=== PATIENT | male | born 1960 | race Caucasian/White ===

== ENCOUNTER 2017-02-24 13:58 | Emergency (ER) | payer OTHER ==
[2017-02-24 14:08] VITALS: BP 145/92; PULSE 86; TEMP 98; BMI 29.7
[2017-02-24] MEDS ORDERED: KETOROLAC TROMETHAMINE 30 MG/1 ML VIAL IM ONE (14:34)
[2017-02-24] MEDS ORDERED: CYCLOBENZAPRINE HCL 10 MG TABLET (FP) PO ONE (14:34)
[2017-02-24] MEDS ORDERED: CYCLOBENZAPRINE HCL 10 MG TABLET (FP) ONE (14:39)
[2017-02-24] MEDS ORDERED: KETOROLAC TROMETHAMINE 30 MG/1 ML VIAL ONE (14:39)
--- NOTE | 2017-02-24 14:45 | PDOC ---
History of Present Illness - General Chief Complaint: Back Pain Stated Complaint: BACK PAIN Time Seen by Provider: 02/24/17 14:18 History Source: Patient Exam Limitations: No Limitations - History of Present Illness Initial Comments: 02/24/17 14:34 56 year old male with non radiating, constant pain to left lower back x 2 days . States pain is worse with movement. Denies fever, chills, or urinary symptoms. States took no medication so far 02/24/17 14:47 Occurred: reports: yesterday Severity: reports: mild Pain Location: reports: back Method of Injury: Yes: unknown Modifying Factors: improves with: immobilization Loss of Consciousness: no loss of consciousness Associated Symptoms (Fall): denies symptoms Past History - Past Medical History Allergies/Adverse Reactions: Allergies Allergy/AdvReac Type Severity Reaction Status Date / Time No Known Allergies Allergy Verified 02/24/17 14:00 Home Medications: Ambulatory Orders Cyclobenzaprine HCl [Flexeril -] 10 mg PO HS #30 tablet 02/24/17 Naproxen [Naprosyn -] 500 mg PO ONCE #20 tablet 02/24/17 COPD: No Thyroid Disease: No - Suicide/Smoking/Psychosocial Hx Smoking History: Never smoked Have you smoked in the past 12 months: No Information on smoking cessation initiated: No Hx Alcohol Use: No Drug/Substance Use Hx: No Substance Use Type: None Trauma Specific PMHX - Complaint Specific PMHX Arthritis: No Back Injury: No Neck Injury: No Hx Sacro Iliac Joint Dysfunction: No Review of Systems - Review of Systems Able to Perform ROS?: Yes Is the patient limited [place] proficient: No Constitutional: No: Chills, Fever, Malaise, Night Sweats, Weakness, Weight Stable, Other HEENTM: No: See HPI, Double Vision, Ear Discharge, Nose Congestion, Tinnitus, Throat Pain, Throat Swelling, Mouth Swelling Respiratory: No: Orthopnea, Shortness of Breath, SOB at Rest, Wheezing, Productive cough Cardiac (ROS): No: Chest Pain, Lightheadedness ABD/GI: No: Nausea, Poor Appetite, Indigestion, Abdominal cramping : No: Burning, Discharge, Hematuria, Incontinence, Urgency, Testicular Pain Musculoskeletal: Yes: Back Pain, Muscle Pain Integumentary: No: Bruising, Change in Hair/Nails, Erythema Neurological: No: Numbness, Unsteady Gait *Physical Exam - Vital Signs Last Vital Signs Temp Pulse Resp BP Pulse Ox 98.0 F 86 18 145/92 100 02/24/17 14:01 02/24/17 14:01 02/24/17 14:01 02/24/17 14:01 02/24/17 14:01 - Physical Exam General Appearance: Yes: Nourished, Appropriately Dressed. No: Apparent Distress HEENT: positive: EOMI, BIJAN, Pharynx Normal Neck: positive: Supple. negative: Lymphadenopathy (R), Lymphadenopathy (L), Tender midline Respiratory/Chest: positive: Lungs Clear, Normal Breath Sounds. negative: Respiratory Distress, Accessory Muscle Use Cardiovascular: positive: Regular Rhythm, Regular Rate, S1, S2 Musculoskeletal: positive: Other (no mid spinal tenderness, non tender with palpation over left flank, + pain with straight leg raise). negative: CVA Tenderness (R), CVA Tenderness (L), Decreased Range of Motion Extremity: positive: Normal Capillary Refill Neurologic: positive: regulatory affairs consultant II-XII NML intact, Fully Oriented, Alert Medical Decision Making - Medical Decision Making 02/24/17 14:51 56 year old with no medical or surgical history with lower left back pain worse with movement urinalysis analgesia ordered 02/24/17 15:44 urinalysis: negative pain better after medication rx: flexeril x3 days and analgesia *DC/Admit/Observation/Transfer Diagnosis at time of Disposition: Back pain Qualifiers: Back pain location: low back pain Chronicity: acute Back pain laterality: left Sciatica presence: without sciatica Qualified Code(s): M54.5 - Low back pain - Discharge Dispostion Disposition: HOME Condition at time of disposition: Good Admit: No - Prescriptions Prescriptions: Cyclobenzaprine HCl [Flexeril -] 10 mg PO HS #30 tablet Naproxen [Naprosyn -] 500 mg PO ONCE #20 tablet - Referrals Referrals: Luis Dial MD [Primary Care Provider] - - Patient Instructions Printed Discharge Instructions: Low Back Pain, DI for Low Back Pain Additional Instructions: *Activity as tolerated *Avoid heavy lifting *Warm compress to lower back for 20 minutes 3 times daily - Post Discharge Activity Forms/Work/School Notes: Back to Work
[2017-02-24 15:25] LABS: PH,URINE 5.5 (5.0-8.0); URINE APPEARANCE CLEAR; URINE BILIRUBIN NEGATIVE (NEGATIVE); URINE BLOOD NEGATIVE (NEGATIVE); URINE COLOR LT. YELLOW; URINE GLUCOSE (UA) NEGATIVE (NEGATIVE); URINE KETONE NEGATIVE (NEGATIVE); URINE NITRITE NEGATIVE (NEGATIVE); URINE PROTEIN NEGATIVE (NEGATIVE); URINE UROBILINOGEN 0.2 mg/dL (0.2-1.0)
[2017-02-24 19:14] LABS: URINE LEUK ESTERASE Negative (NEGATIVE)
== END 2017-02-24 15:52 | disposition home or self-care (01) ==
LOC: JERFT 13:58 → JER 13:58 → JERFT 15:52
PROC: 3E0233Z Introduction of Anti-inflammatory into Muscle, Percutaneous Approach (ICD-10-PCS; principal; 2017-02-24)
DX: M54.5 Low back pain (principal)
CPT/HCPCS: 81003; 96372; 99281-25